=== PATIENT | male | born 1960 | race Caucasian/White ===

== ENCOUNTER 2017-04-29 11:16 | Day surgery (SDC) | payer BC, OTHER ==
[~2017-04-29] VITALS: Ht 177.8 cm; Wt 80.8 kg
[2017-04-29 11:53] VITALS: Ht 177.8 cm; Wt 80.8 kg
[2017-04-29] MEDS ORDERED: AMITRIPTYLINE BC (12:01)
--- NOTE | 2017-04-29 14:11 | OPPN ---
Date/Time of Note Date/Time of Note DATE: 04/29/17 TIME: 14:09 Operative Report Preoperative Diagnosis Screening colonoscopy Postoperative Diagnosis Internal hemorrhoids No colon neoplasm was identified Operation/Procedure Performed Colonoscopy Anesthesia: other Estimated blood loss: none Complications: None PAL MENA MD Apr 29, 2017 14:11
[2017-04-29] MEDS ORDERED: FENTAnyl 50 MCG/ML VIAL ONE (14:13)
[2017-04-29] MEDS ORDERED: MIDAZOLAM 1 MG/ML 2 ML INJ ONE ×3 (14:13)
[2017-04-29 14:30] VITALS: BP 119/88; RESP 14
--- NOTE | 2017-04-29 15:33 | GILP ---
DATE OF PROCEDURE: 04/29/2017 PROCEDURE: Colonoscopy. SURGEON: Leonel Tony MD PREOPERATIVE DIAGNOSIS: Screening colonoscopy. POSTOPERATIVE DIAGNOSES: 1. Colonoscopy all the way to the cecum. 2. Internal hemorrhoids. 3. No colon neoplasm was identified. INDICATION: The patient is a 57-year-old male patient who was scheduled for screening colonoscopy. The procedure and possible complications were well explained to the patient. The patient understood and consented to the procedure. DESCRIPTION OF PROCEDURE: Under influence of fentanyl and Versed, the colonoscope was carefully introduced in the rectum, and under direct vision it was advanced all the way to the cecum. FINDINGS: The patient had internal hemorrhoids. No colon neoplasm was identified. He tolerated the procedure very well. There was no complication from the procedure. At the end of procedure he was awake with stable vital signs and he was discharged home in care of his family. IMPRESSION: 1. Colonoscopy all the way to the cecum. 2. Internal hemorrhoids. 3. No colon neoplasm was identified. PLAN: Screening colonoscopy in 10 years. Linzess 145 mcg p.o. daily a.m. before breakfast for constipation. Dictated By: MD CONY Estrada/galent/bjc /Document#: [id number]
== END 2017-04-29 14:44 | disposition home or self-care (01) ==
LOC: GIL 11:16
PROVIDERS: ATTEND Internal Medicine Gastroenterology
DX: Z12.11 Encounter for screening for malignant neoplasm of colon (principal); K64.8 Other hemorrhoids
CPT/HCPCS: 45378; J2250; J3010